=== PATIENT | male | born 1965 | race Hispanic/Latino ===

== ENCOUNTER → 2020-10-01 | Outpatient (CLI) | payer OTHER ==
[~2020-10-01] MED LIST: AZITHROMYCIN250 MG PO; BENZONATATE100 MG PO; IBUPROFEN400 MG PO; LIDOCAINE HCL 2% LOCAL 20 ML VIAL ONE; LIDOCAINE/PRILOCAINE 2.5-2.5% KIT ONE; MINERAL OIL/PETROLAT/GLYCERI 6OZ BTL ONE
== END ==
LOC: WCC 14:33
PROVIDERS: ATTEND Podiatrist
DX: L03.116 Cellulitis of left lower limb (principal); B96.89 Other specified bacterial agents as the cause of diseases classified elsewhere; E66.01 Morbid (severe) obesity due to excess calories; S91.309A Unspecified open wound, unspecified foot, initial encounter; Y92.410 Unspecified street and highway as the place of occurrence of the external cause
CPT/HCPCS: 10061; 87071; 87075; 87205; 88305; J2001

== ENCOUNTER → 2020-10-02 | Day surgery (SDC) | payer OTHER ==
[~2020-10-02] MED LIST changes: +BETAMETHASONE DISODIUM PHOS 6 MG/ML VIAL ONE; +BUPIVACAINE 0.25% 30ML SDV ONE; +BUPIVACAINE HCL 0.5% INJ 30 ML VIAL INJ ONE; +CLINDAMYCIN 600MG / 50ML 50 ML IV ONE; +FENTANYL CITRATE/PF 100MCG/2 ML INJ ONE; +LIDOCAINE HCL 1% LOCAL INJ 20 ML VIAL ONE; -LIDOCAINE HCL 2% LOCAL 20 ML VIAL ONE; +LIDOCAINE HCL 2% LOCAL INJ 5 ML SDV VIAL INJ ONE; -LIDOCAINE/PRILOCAINE 2.5-2.5% KIT ONE; +MIDAZOLAM HCL 2 MG/2 ML VIAL ONE; -MINERAL OIL/PETROLAT/GLYCERI 6OZ BTL ONE; +PROPOFOL IV EMULSION 10 MG/ML 20 ML VIAL ONE
[2020-10-02 09:40] LABS: BASOPHILS % 0.3 % (0.0-1.0); EOSINOPHILS # (AUTO) 0.3 (0.0-0.4); EOSINOPHILS % 3.1 % (0.0-6.0); HEMATOCRIT 49.6 % (38.2-49.6); HEMOGLOBIN 16.1 g/dL (14.0-18.0); LYMPHOCYTES # (AUTO) 1.9 (1.0-3.2); LYMPHOCYTES % 22.4 % (18.0-39.1); MEAN CORPUSCULAR HEMOGLOBIN 29.5 pg (28-32); MEAN CORPUSCULAR HGB CONC 32.5 g/dL (31-35); MONOCYTES # (AUTO) 0.6 (0.2-0.8); MONOCYTES % 7.3 % (4.4-11.3); NEUTROPHILS # (AUTO) 5.7 (2.1-6.9); NEUTROPHILS % 66.6 % (38.7-80.0); PLATELET COUNT 362 x10e3/uL (140-360); RED BLOOD COUNT 5.45 x10e6/uL (4.3-5.7); RED CELL DISTRIBUTION WIDTH 13.3 % (11.7-14.4)
[2020-10-02 10:09] LABS: ALANINE AMINOTRANSFERASE 26 IU/L (0-55); ALBUMIN 4.2 g/dL (3.5-5.0); ALBUMIN/GLOBULIN RATIO 1.2 (0.8-2.0); ALKALINE PHOSPHATASE 92 IU/L (40-150); ANION GAP 11.3 mmol/L (8-16); BLOOD UREA NITROGEN 18 mg/dL (7-26); BUN/CREATININE RATIO 22 (6-25); CALCIUM 9.5 mg/dL (8.4-10.2); CARBON DIOXIDE 29 mmol/L (22-29); CHLORIDE 106 mmol/L (98-107); CREATININE, SERUM 0.83 mg/dL (0.72-1.25); EST GLOMERULAR FILTRATION RATE > 60 ML/MIN (60-); GLUCOSE 107 mg/dL (74-118); POTASSIUM 5.3 mmol/L (3.5-5.1); SODIUM 141 mmol/L (136-145)
[2020-10-02 10:24] LABS: ERYTHROCYTE SEDIMENTATION RATE 9 mm/hr (0-13)
[2020-10-02 12:40] VITALS: BP 140/82
== END | disposition home or self-care (01) ==
LOC: OR 07:48
PROVIDERS: ATTEND Podiatrist
DX: M79.5 Residual foreign body in soft tissue (principal); L03.116 Cellulitis of left lower limb; G47.33 Obstructive sleep apnea (adult) (pediatric); M54.2 Cervicalgia; M54.9 Dorsalgia, unspecified; R05 Cough; F17.210 Nicotine dependence, cigarettes, uncomplicated; F41.9 Anxiety disorder, unspecified; Z20.828 Contact with and (suspected) exposure to other viral communicable diseases; Z88.6 Allergy status to analgesic agent; Z88.0 Allergy status to penicillin
CPT/HCPCS: 28192; 36415; 80053; 85025; 85651; 86140; 87071; 87075; 87205; 88300; J2001; J2250; J2704; J3010; U0002; J0720

== ENCOUNTER → 2020-10-06 | Outpatient (CLI) | payer OTHER ==
[~2020-10-06] MED LIST changes: -BETAMETHASONE DISODIUM PHOS 6 MG/ML VIAL ONE; -BUPIVACAINE 0.25% 30ML SDV ONE; -BUPIVACAINE HCL 0.5% INJ 30 ML VIAL INJ ONE; -CLINDAMYCIN 600MG / 50ML 50 ML IV ONE; -FENTANYL CITRATE/PF 100MCG/2 ML INJ ONE; -LIDOCAINE HCL 1% LOCAL INJ 20 ML VIAL ONE; -LIDOCAINE HCL 2% LOCAL INJ 5 ML SDV VIAL INJ ONE; -MIDAZOLAM HCL 2 MG/2 ML VIAL ONE; -PROPOFOL IV EMULSION 10 MG/ML 20 ML VIAL ONE
== END ==
LOC: WCC 10:55
PROVIDERS: ATTEND Podiatrist
DX: T81.89XA Other complications of procedures, not elsewhere classified, initial encounter (principal); L03.116 Cellulitis of left lower limb; S91.309A Unspecified open wound, unspecified foot, initial encounter; B96.89 Other specified bacterial agents as the cause of diseases classified elsewhere; E66.01 Morbid (severe) obesity due to excess calories; Y92.410 Unspecified street and highway as the place of occurrence of the external cause

== ENCOUNTER → 2020-10-08 | Outpatient (CLI) | payer OTHER | LOC: WCC 15:19 | PROVIDERS: ATTEND Podiatrist | DX: T81.89XA Other complications of procedures, not elsewhere classified, initial encounter (principal); L03.116 Cellulitis of left lower limb; B96.89 Other specified bacterial agents as the cause of diseases classified elsewhere; E66.01 Morbid (severe) obesity due to excess calories; Y92.410 Unspecified street and highway as the place of occurrence of the external cause | CPT/HCPCS: 10061; 87071; 87075; 87205 ==

== ENCOUNTER → 2020-10-09 | Outpatient (CLI) | payer OTHER | LOC: WCC 15:27 | PROVIDERS: ATTEND Podiatrist | DX: T81.89XA Other complications of procedures, not elsewhere classified, initial encounter (principal); L03.116 Cellulitis of left lower limb; E66.01 Morbid (severe) obesity due to excess calories; Y92.410 Unspecified street and highway as the place of occurrence of the external cause; B96.89 Other specified bacterial agents as the cause of diseases classified elsewhere ==

== ENCOUNTER → 2020-10-13 | Outpatient (CLI) | payer OTHER ==
[~2020-10-13] MED LIST changes: +LIDOCAINE/PRILOCAINE 2.5-2.5% KIT ONE; +MINERAL OIL/PETROLAT/GLYCERI 2OZ CRM ONE
== END ==
LOC: WCC 16:03
PROVIDERS: ATTEND Podiatrist
DX: T81.89XA Other complications of procedures, not elsewhere classified, initial encounter (principal); L03.116 Cellulitis of left lower limb; B96.89 Other specified bacterial agents as the cause of diseases classified elsewhere; E66.01 Morbid (severe) obesity due to excess calories; Y92.410 Unspecified street and highway as the place of occurrence of the external cause

== ENCOUNTER → 2020-10-15 | Outpatient (CLI) | payer OTHER ==
[~2020-10-15] MED LIST changes: -LIDOCAINE/PRILOCAINE 2.5-2.5% KIT ONE; -MINERAL OIL/PETROLAT/GLYCERI 2OZ CRM ONE
== END ==
LOC: WCC 15:34
PROVIDERS: ATTEND Podiatrist
DX: T81.89XA Other complications of procedures, not elsewhere classified, initial encounter (principal); L03.116 Cellulitis of left lower limb; B96.89 Other specified bacterial agents as the cause of diseases classified elsewhere; E66.01 Morbid (severe) obesity due to excess calories; Y92.410 Unspecified street and highway as the place of occurrence of the external cause

== ENCOUNTER → 2020-10-20 | Outpatient (CLI) | payer OTHER | LOC: WCC 15:58 | PROVIDERS: ATTEND Podiatrist | DX: T81.89XA Other complications of procedures, not elsewhere classified, initial encounter (principal); L03.116 Cellulitis of left lower limb; B96.89 Other specified bacterial agents as the cause of diseases classified elsewhere; E66.01 Morbid (severe) obesity due to excess calories; Y92.410 Unspecified street and highway as the place of occurrence of the external cause ==

== ENCOUNTER → 2020-10-21 | Outpatient (CLI) | payer OTHER | LOC: WCC 14:37 | PROVIDERS: ATTEND Podiatrist | DX: T81.89XA Other complications of procedures, not elsewhere classified, initial encounter (principal); L03.116 Cellulitis of left lower limb; B96.89 Other specified bacterial agents as the cause of diseases classified elsewhere; E66.01 Morbid (severe) obesity due to excess calories; Y92.410 Unspecified street and highway as the place of occurrence of the external cause ==

== ENCOUNTER → 2020-10-22 | Outpatient (CLI) | payer OTHER | LOC: WCC 14:14 | PROVIDERS: ATTEND Podiatrist | DX: T81.89XA Other complications of procedures, not elsewhere classified, initial encounter (principal); L03.116 Cellulitis of left lower limb; B96.89 Other specified bacterial agents as the cause of diseases classified elsewhere; E66.01 Morbid (severe) obesity due to excess calories; Y92.410 Unspecified street and highway as the place of occurrence of the external cause ==

== ENCOUNTER 2020-11-05 13:51 | Outpatient (RCR) | payer OTHER | END 2020-11-09 | LOC: WCC 13:51 | PROVIDERS: ATTEND Podiatrist | DX: T81.89XA Other complications of procedures, not elsewhere classified, initial encounter (principal); L03.116 Cellulitis of left lower limb; B96.89 Other specified bacterial agents as the cause of diseases classified elsewhere; E66.01 Morbid (severe) obesity due to excess calories; Y92.410 Unspecified street and highway as the place of occurrence of the external cause ==

== ENCOUNTER → 2020-11-18 | Outpatient (CLI) | payer OTHER ==
[2020-11-18 11:27] LABS: BLOOD UREA NITROGEN 17 mg/dL (7-26); BUN/CREATININE RATIO 21 (6-25); EST GLOMERULAR FILTRATION RATE > 60 ML/MIN (60-)
== END ==
LOC: MRI 09:38
PROVIDERS: ATTEND Podiatrist
DX: R52 Pain, unspecified (principal)
CPT/HCPCS: 36415; 82565; 84520

== ENCOUNTER 2020-12-03 16:01 | Outpatient (RCR) | payer OTHER ==
[~2020-12-03 16:01] MED LIST changes: +LIDOCAINE/PRILOCAINE 2.5-2.5% KIT ONE; +MUPIROCIN 2% OINT 22 GM TUBE ONE
== END 2020-12-07 ==
LOC: WCC 16:01
PROVIDERS: ATTEND Podiatrist
DX: L02.612 Cutaneous abscess of left foot (principal); R52 Pain, unspecified; B96.89 Other specified bacterial agents as the cause of diseases classified elsewhere; E66.01 Morbid (severe) obesity due to excess calories; Y92.410 Unspecified street and highway as the place of occurrence of the external cause
CPT/HCPCS: 82306

== ENCOUNTER 2020-12-17 14:38 | Outpatient (RCR) | payer OTHER ==
[~2020-12-17 14:38] MED LIST changes: -MUPIROCIN 2% OINT 22 GM TUBE ONE; +SILVER SULFADIAZINE 50GM CREAM ONE
[2020-12-17] MEDS ORDERED: LIDOCAINE/PRILOCAINE 2.5-2.5% KIT ONE (16:27)
== END 2021-01-07 ==
LOC: WCC 14:38
PROVIDERS: ATTEND Podiatrist
DX: L02.612 Cutaneous abscess of left foot (principal); M72.2 Plantar fascial fibromatosis; R52 Pain, unspecified; S91.302A Unspecified open wound, left foot, initial encounter; B96.89 Other specified bacterial agents as the cause of diseases classified elsewhere; E66.01 Morbid (severe) obesity due to excess calories; Y92.410 Unspecified street and highway as the place of occurrence of the external cause

== ENCOUNTER → 2021-06-12 | Day surgery (SDC) | payer OTHER ==
[~2021-06-12] MED LIST changes: +BUPIVACAINE 0.25% 30ML SDV ONE; +CLINDAMYCIN PHOS 900MG/ 50ML 50 ML IV ONE; +DEXAMETHASONE SOD PHOS INJ 4 MG/ML VIAL ONE; -LIDOCAINE/PRILOCAINE 2.5-2.5% KIT ONE; +ONDANSETRON HCL INJ 2MG/ML 2ML 2 MG/ML VIAL ONE; +PROMETHAZINE HCL (IM) 25 MG/ML VIAL IM ONE; -SILVER SULFADIAZINE 50GM CREAM ONE; +TYLENOL EXTRA500 MG PO
[2021-06-12 08:45] VITALS: BP 146/83
== END | disposition home or self-care (01) ==
LOC: OR 06:37
PROVIDERS: ATTEND Podiatrist Foot & Ankle Surgery
DX: T84.84XA Pain due to internal orthopedic prosthetic devices, implants and grafts, initial encounter (principal); G47.33 Obstructive sleep apnea (adult) (pediatric); E66.9 Obesity, unspecified; F17.210 Nicotine dependence, cigarettes, uncomplicated; Y83.8 Other surgical procedures as the cause of abnormal reaction of the patient, or of later complication, without mention of misadventure at the time of the procedure; Z88.6 Allergy status to analgesic agent; Z88.0 Allergy status to penicillin; Z01.810 Encounter for preprocedural cardiovascular examination; Z01.812 Encounter for preprocedural laboratory examination; Z20.822 Contact with and (suspected) exposure to COVID-19
CPT/HCPCS: 20680; 93005; J2405; J2550; U0002; J1100

== ENCOUNTER → 2021-07-03 | Outpatient (CLI) | payer OTHER ==
[~2021-07-03] MED LIST changes: -BUPIVACAINE 0.25% 30ML SDV ONE; -CLINDAMYCIN PHOS 900MG/ 50ML 50 ML IV ONE; -DEXAMETHASONE SOD PHOS INJ 4 MG/ML VIAL ONE; -ONDANSETRON HCL INJ 2MG/ML 2ML 2 MG/ML VIAL ONE; -PROMETHAZINE HCL (IM) 25 MG/ML VIAL IM ONE
[2021-07-03 13:34] LABS: CREATININE, SERUM 0.93 mg/dL (0.72-1.25)
== END ==
LOC: DX 11:25
PROVIDERS: ATTEND Internal Medicine Infectious Disease
DX: L02.612 Cutaneous abscess of left foot (principal)
CPT/HCPCS: 36415; 36569; 71045; 82565; 84520; 85014

== ENCOUNTER → 2021-07-08 | Outpatient (CLI) | payer OTHER | LOC: MRI 07:43 | PROVIDERS: ATTEND Internal Medicine Infectious Disease | DX: L02.612 Cutaneous abscess of left foot (principal) ==

== ENCOUNTER → 2023-01-06 | Outpatient (CLI) | payer OTHER | LOC: MRI 07:45 | PROVIDERS: ATTEND Podiatrist Foot & Ankle Surgery | DX: M86.072 Acute hematogenous osteomyelitis, left ankle and foot (principal) ==